=== PATIENT | female | born 1970 | race Caucasian/White ===

== ENCOUNTER → 2016-08-18 | Day surgery (SDC) | payer OTHER ==
[~2016-08-18] MED LIST: ACETAMINOPHEN 1000 MG/100 ML VIAL IV ONE; ALPR0.5T3 PO; APREPITANT 40 MG CAP ONE; BACL10TA PO; BUPIVACAINE/EPINEPHRINE 0.25% PF 30 ML VIAL ONE; EPINEPHrine HCL (1:1000) 1 MG/ML VIAL ONE; ERGO1CAP10 PO; HYDR25TA5 PO; LACTATED RINGER'S 1,000 ML BAG IV ONE; LACTATED RINGER'S 1000 ML INJ 1,000 ML ONE; LIDOCAINE 1%/EPINEPHrine 1:100,000 SOLN 20 ML VIAL ONE; LIDOCAINE HCL 1% PF 30 ML VIAL ONE; MIDAZOLAM HCL 5 MG/ML VIAL (1 ML) ONE; ONDANSETRON HCL 4 MG/2 ML VIAL IV PUSH ONE; OXYC5 PO; PANT40TA3 PO; PROPOFOL 500 MG/50 ML BTL IV ONE; QUET1TAB7 PO; VENTAER INH; ZIPR1CAP8 PO; ceFAZolin INJ 1,000 MG VIAL ONE
--- NOTE | 2016-08-18 12:21 | TN ---
cc: PASCUAL JACOB M.D. DATE OF SURGERY 08/18/2016 PREOPERATIVE DIAGNOSIS Lipodystrophy of the thighs and abdomen POSTOPERATIVE DIAGNOSIS Lipodystrophy of the thighs and abdomen PROCEDURE Slim lipo of the thigh, abdomen and torso and a thigh lift. SURGEON Pascual Jacob MD BOARD MACHINE SET UP OPERATOR Brenda Wolf, MS-3 ANESTHESIA TIVA COMPLICATIONS None DRAINS None PROCEDURE After proper consent, marked and anesthetized, the skin was sterilized with Betadine solution and draped with the tulip draping system and sterile draping was applied. Tumescent fluid was infiltrated throughout the torso and thighs for a grand total of about 3000 cc. Total energy applied was 60,000 joules and those were applied into the torso, flanks, back as well as the thighs. The energy was 20/20 and after the energy was delivered, suctioned took place utilizing 2.5 and 3.5 mm mitral A cannulas. After this was properly finished, I proceeded and closed each and every one of the punctures wounds. That was done utilizing an 11-blade with 4-0 chromic suture and Steri-Strips were applied. Dog-ears from previous abdominoplasty were properly excised and closed utilizing 2-0 Monocryl sutures from each side approximately 3 cm each. Finally, the patient was put in stirrups. She was re-sterilized and we did a tailor-tack technique to assess the excessive of loose skin in the medial thigh that was properly marked. The skin and the subcutaneous tissue was removed. Closure was done with multiple 2-0 Monocryl suture layers and Insorb. The skin was covered with Dermabond Prineo and Primapore. A girdle was applied thereafter. Good viability of tissue was noted at the end of the case. The patient was awakened and extubated in the operating room, transferred back to the postanesthesia care unit in stable condition. There were no complications appreciated and the patient tolerated the procedure fairly well. MD SHELBY Ness/CHARIS /10:46 AM /12:13 PM
== END | disposition home or self-care (01) ==
LOC: ESDC 06:06
PROVIDERS: ATTEND Plastic Surgery
DX: Z41.1 Encounter for cosmetic surgery (principal)
CPT/HCPCS: 00400; 15832; 15877; 15879; J0131; J0171; J0690; J2250; J2405; J3010; J7120; J8501